=== PATIENT | female | born 1980 ===

== ENCOUNTER → 2017-07-14 | Outpatient (CLI) | payer BC ==
[~2017-07-14] MED LIST: ACEBUTCAFT PO; ASCO500 PO; Adipex-P37.5 M1 PO; CHOL10002 PO; CYAN1000 PO; Cleocin HCl300 MG PO; DULO30 PO; ESCI20 PO; ESTR2 PO; Flonase 0.05% N16 GM; HYDACE5 PO; Hair, Skin & N1 EACH PO; MINIVELLE; MULTIVITAMIN PO; NAPR500 PO; PROC10 PO; Percocet 5-3251 EACH PO; SERT100 PO; TOPI50 PO; VENL150ER PO; VENL25 PO; VENL75ER PO
== END ==
LOC: LAB 19:30
DX: N39.0 Urinary tract infection, site not specified (principal)
CPT/HCPCS: 87077; 87086; 87186